=== PATIENT | female | born 1940 | race Caucasian/White ===

== ENCOUNTER 2017-08-10 08:17 | Day surgery (SDC) | payer MEDICARE, OTHER ==
[~2017-08-10] VITALS: Ht 152.4 cm; Wt 76.4 kg
[~2017-08-10 08:17] MED LIST: ATOR20TA86 PO; GABA-529 PO; HYDR25TA PO; INSU100V12 SQ; LEVO75 PO; LISI-660 PO; METF500T4 PO; METO25XL PO; [UNRECOGNIZED DRUG - OTHER] PO
[2017-08-10 09:17] LABS: BASOPHILS % (AUTO) 0.8 % (0.0-2.0); EOSINOPHILS % (AUTO) 1.3 % (1.0-6.0); HEMATOCRIT 36.6 % (36-46); LYMPHOCYTES # (AUTO) 2.4 K/uL (1.0-4.8); LYMPHOCYTES % (AUTO) 29.5 % (22.0-44.0); MEAN CORPUSCULAR HEMOGLOBIN 27.3 pg (26.0-34.0); MEAN CORPUSCULAR HGB CONC 32.9 G/dL (31.0-37.0); MEAN CORPUSCULAR VOLUME 83 fL (80-100); MONOCYTES # (AUTO) 0.4 K/uL (0.1-1.0); MONOCYTES % (AUTO) 5.2 % (2.0-9.0); NEUTROPHILS # (AUTO) 5.2 K/uL (1.8-7.7); NEUTROPHILS % (AUTO) 63.2 % (40.0-70.0); PLATELET COUNT (AUTO) 293 K/uL (150-450); RED BLOOD CELL COUNT(AUTO) 4.41 MIL/uL (4.00-5.20); RED CELL DISTRIBUTION WIDTH 19.1 % (11.5-14.5)
[2017-08-10 09:22] LABS: PROTHROMBIN TIME 10.5 SEC (9.4-11.6)
[2017-08-10] MEDS ORDERED: METOPROLOL TARTRATE 50 MG TABLET PO ONE (09:30)
[2017-08-10 09:38] LABS: CALCIUM, TOTAL 9.6 mg/dL (8.8-10.5); CREATININE 0.97 mg/dL (0.60-1.30); POTASSIUM 4.4 mmol/L (3.5-5.1)
[2017-08-10] MEDS ORDERED: SODIUM CHLORIDE 0.9% 100 ML ONE (09:57)
[2017-08-10] MEDS ORDERED: IOVERSOL 350 MG/ML 150 ML VIAL ONE (09:57)
[2017-08-10] MEDS ORDERED: METOPROLOL TARTRATE 5 MG/5 ML VIAL ONE (10:28)
[2017-08-10] MEDS ORDERED: NITROGLYCERIN 400 MCG/SUBLINGUAL SPRAY 4.9 GM BOTTLE SL ONE (10:29)
[2017-08-10] MEDS ORDERED: METOPROLOL TARTRATE 5 MG/5 ML VIAL IVP ONE (10:44)
== END 2017-08-10 11:40 | disposition home or self-care (01) ==
LOC: SURGERY 08:17 → EDSTATUS 11:00 → SURGERY 11:40
PROVIDERS: ATTEND Internal Medicine Cardiovascular Disease
DX: I25.10 Atherosclerotic heart disease of native coronary artery without angina pectoris (principal); E78.00 Pure hypercholesterolemia, unspecified; E11.9 Type 2 diabetes mellitus without complications; I10 Essential (primary) hypertension; M19.90 Unspecified osteoarthritis, unspecified site; I08.3 Combined rheumatic disorders of mitral, aortic and tricuspid valves; Z79.1 Long term (current) use of non-steroidal anti-inflammatories (NSAID); Z79.4 Long term (current) use of insulin; Z79.84 Long term (current) use of oral hypoglycemic drugs; Z88.6 Allergy status to analgesic agent; Z87.891 Personal history of nicotine dependence; Z98.890 Other specified postprocedural states; Z79.899 Other long term (current) drug therapy; Z88.5 Allergy status to narcotic agent
CPT/HCPCS: 36415; 75574; 80048; 85025; 85610; 85730; 93005; J3490; J7050; Q9967

== ENCOUNTER 2017-10-14 18:55 | Inpatient (IN) | payer MEDICARE, OTHER ==
[~2017-10-14] VITALS: Ht 152.4 cm; Wt 78.5 kg
[~2017-10-14 18:55] MED LIST changes: -METF500T4 PO; +METF500T6 PO
[2017-10-14 19:00] VITALS: BP 154/89
[2017-10-14 20:16] LABS: GLUCOMETER DEV NAME(LOC) 2WR 1B; GLUCOSE,POINT OF CARE 169 MG/DL (70-110)
[2017-10-14] MEDS ORDERED: DOCUSATE SODIUM 283 MG/5 ML MINI-ENEMA PR PRN (20:30)
[2017-10-14] MEDS ORDERED: SENNA 187 MG TABLET PO SCH (21:00)
[2017-10-14] MEDS ORDERED: DEXTROSE 50%-WATER 25 GM/50 ML SYRINGE IVP PRN (22:15)
[2017-10-14 22:18] VITALS: BP 132/66
[2017-10-14 22:51] LABS: GLUCOMETER DEV NAME(LOC) 2WR 1B; GLUCOSE,POINT OF CARE 236 MG/DL (70-110)
[2017-10-14] MEDS: DOCUSATE SODIUM 100 MG CAPSULE PO SCH (22:54)
[2017-10-14] MEDS: INSULIN LISPRO 100 UNITS/ML SQ PRN (22:56)
[2017-10-14] MEDS: INSULIN GLARGINE,HUM.REC.ANLOG 100 UNITS/ML SQ SCH (22:57)
[2017-10-14] MEDS ORDERED: HYDROCODONE/ACETAMINOPHEN 5-325 MG TABLET PO PRN (23:15)
[2017-10-14] MEDS ORDERED: DiphenhydrAMINE HCL 25 MG CAPSULE PO PRN (23:15)
[2017-10-14] MEDS ORDERED: HYDROCODONE/ACETAMINOPHEN 10-325 MG TABLET PO PRN (23:15)
[2017-10-15] VITALS (10 sets, daily range): BP systolic 85–153; BP diastolic 50–76
[2017-10-15 00:24] LABS: APPEARANCE,URINE CLEAR (CLEAR); BILIRUBIN,URINE NEGATIVE (NEGATIVE); GLUCOSE, URINE (UA) NEGATIVE (NEGATIVE); KETONES,URINE NEGATIVE (NEGATIVE); LEUKOCYTE ESTERASE ,URINE NEGATIVE (NEGATIVE); NITRATE,URINE NEGATIVE (NEGATIVE); OCCULT BLOOD,URINE NEGATIVE (NEGATIVE); PH,URINE 6.5 (5.0-8.0); PROTEIN,URINE NEGATIVE (NEGATIVE); UROBILINOGEN,URINE 0.2 mg/dL (<=1.0)
[2017-10-15] MEDS: LEVOTHYROXINE SODIUM 75 MCG TABLET PO SCH (05:37)
[2017-10-15 05:54] LABS: GLUCOMETER DEV NAME(LOC) 2WR 2E; GLUCOSE,POINT OF CARE 120 MG/DL (70-110)
[2017-10-15 06:30] LABS: BASOPHILS % (AUTO) 0.7 % (0.0-2.0); EOSINOPHILS % (AUTO) 2.8 % (1.0-6.0); HEMATOCRIT 36.3 % (36-46); HEMOGLOBIN 12.3 g/dL (12.0-16.0); LYMPHOCYTES # (AUTO) 1.9 K/uL (1.0-4.8); LYMPHOCYTES % (AUTO) 22.9 % (22.0-44.0); MEAN CORPUSCULAR HEMOGLOBIN 28.5 pg (26.0-34.0); MEAN CORPUSCULAR HGB CONC 33.9 G/dL (31.0-37.0); MEAN CORPUSCULAR VOLUME 84 fL (80-100); MONOCYTES # (AUTO) 0.6 K/uL (0.1-1.0); MONOCYTES % (AUTO) 6.8 % (2.0-9.0); NEUTROPHILS # (AUTO) 5.5 K/uL (1.8-7.7); NEUTROPHILS % (AUTO) 66.8 % (40.0-70.0); PLATELET COUNT (AUTO) 218 K/uL (150-450); RED BLOOD CELL COUNT(AUTO) 4.31 MIL/uL (4.00-5.20); RED CELL DISTRIBUTION WIDTH 15.2 % (11.5-14.5)
[2017-10-15 07:02] LABS: ALANINE AMINOTRANSFERASE 18 U/L (12-78); ALBUMIN 2.9 g/dL (3.4-5.0); ALKALINE PHOSPHATASE 71 U/L (46-116); ANION GAP 9 mmol/L (8-16); ASPARTATE AMINOTRANSFERASE 17 U/L (15-37); BILIRUBIN,TOTAL 0.3 mg/dL (0.1-1.0); CALCIUM, TOTAL 8.5 mg/dL (8.8-10.5); CARBON DIOXIDE 24 mmol/L (22-29); CHLORIDE 103 mmol/L (98-107); CREATININE 0.84 mg/dL (0.60-1.30); GLUCOSE,RANDOM 121 mg/dL (70-110); POTASSIUM 3.8 mmol/L (3.5-5.1); SODIUM SERUM 136 mmol/L (136-145); TOTAL PROTEIN, SERUM 6.9 g/dL (6.4-8.2); UREA NITROGEN, BLOOD 24 mg/dL (7-18)
[2017-10-15 07:03] LABS: GLOMERULAR FILTR. RATE CALC > 60 mL/min (>60)
[2017-10-15] MEDS: DOCUSATE SODIUM 100 MG CAPSULE PO SCH ×2 (07:58→21:32)
[2017-10-15] MEDS: MetFORMIN HCL 500 MG TABLET PO SCH (07:58)
[2017-10-15] MEDS: ENOXAPARIN SODIUM 40 MG/0.4 ML PF SYRINGE SQ SCH (07:58)
[2017-10-15 12:09] LABS: GLUCOMETER DEV NAME(LOC) 2WR 2E; GLUCOSE,POINT OF CARE 179 MG/DL (70-110)
[2017-10-15] MEDS: INSULIN LISPRO 100 UNITS/ML SQ PRN ×3 (12:38→21:31)
[2017-10-15 17:53] LABS: GLUCOMETER DEV NAME(LOC) 2WR 1B; GLUCOSE,POINT OF CARE 160 MG/DL (70-110)
[2017-10-15] MEDS: INSULIN GLARGINE,HUM.REC.ANLOG 100 UNITS/ML SQ SCH (21:31)
[2017-10-15] MEDS: SENNA 187 MG TABLET PO SCH (21:32)
[2017-10-15 21:33] LABS: GLUCOMETER DEV NAME(LOC) 2WR 1B; GLUCOSE,POINT OF CARE 226 MG/DL (70-110)
[2017-10-16 00:18] VITALS: BP 153/68
[2017-10-16] MEDS: LEVOTHYROXINE SODIUM 75 MCG TABLET PO SCH (05:54)
[2017-10-16 06:23] LABS: GLUCOMETER DEV NAME(LOC) 2WR 2E; GLUCOSE,POINT OF CARE 106 MG/DL (70-110)
[2017-10-16 08:22] VITALS: BP 122/75
[2017-10-16] MEDS: MULTIVITAMINS WITH MINERALS, THERAPEUTIC TABLET PO SCH (08:22)
[2017-10-16] MEDS: DOCUSATE SODIUM 100 MG CAPSULE PO SCH ×2 (08:22→20:14)
[2017-10-16] MEDS: ACETAMINOPHEN 325 MG TABLET PO PRN (08:22)
[2017-10-16] MEDS: MetFORMIN HCL 500 MG TABLET PO SCH (08:22)
[2017-10-16] MEDS: ENOXAPARIN SODIUM 40 MG/0.4 ML PF SYRINGE SQ SCH (08:23)
[2017-10-16] MEDS: FAMOTIDINE 20 MG TABLET PO SCH (09:33)
[2017-10-16 11:53] LABS: GLUCOMETER DEV NAME(LOC) 2WR 2E; GLUCOSE,POINT OF CARE 148 MG/DL (70-110)
[2017-10-16 12:00] VITALS: BP 128/71
[2017-10-16 12:03] VITALS: BP 92/57
[2017-10-16 12:06] VITALS: BP 142/71
[2017-10-16] MEDS: INSULIN LISPRO 100 UNITS/ML SQ PRN ×2 (12:25→18:20)
[2017-10-16 15:40] VITALS: BP 139/58
[2017-10-16] MEDS: SENNA 187 MG TABLET PO SCH (20:14)
[2017-10-16 21:13] LABS: GLUCOMETER DEV NAME(LOC) 2WR 2E; GLUCOSE,POINT OF CARE 143 MG/DL (70-110)
[2017-10-16] MEDS: INSULIN GLARGINE,HUM.REC.ANLOG 100 UNITS/ML SQ SCH (21:17)
[2017-10-16 21:27] LABS: GLUCOMETER DEV NAME(LOC) 2WR 1B; GLUCOSE,POINT OF CARE 135 MG/DL (70-110)
[2017-10-17 00:50] VITALS: BP 135/71
[2017-10-17] MEDS: LEVOTHYROXINE SODIUM 75 MCG TABLET PO SCH (05:55)
[2017-10-17] MEDS: FAMOTIDINE 20 MG TABLET PO SCH (05:56)
[2017-10-17 06:39] LABS: GLUCOMETER DEV NAME(LOC) 2WR 2E; GLUCOSE,POINT OF CARE 98 MG/DL (70-110)
[2017-10-17] MEDS: ENOXAPARIN SODIUM 40 MG/0.4 ML PF SYRINGE SQ SCH (09:09)
[2017-10-17] MEDS: MetFORMIN HCL 500 MG TABLET PO SCH (09:09)
[2017-10-17] MEDS: MULTIVITAMINS WITH MINERALS, THERAPEUTIC TABLET PO SCH (09:09)
[2017-10-17] MEDS: DOCUSATE SODIUM 100 MG CAPSULE PO SCH ×2 (09:09→21:03)
[2017-10-17 09:10] VITALS: BP 117/71
[2017-10-17] MEDS: ACETAMINOPHEN 325 MG TABLET PO PRN (09:11)
[2017-10-17 09:13] VITALS: BP 133/67
[2017-10-17 12:14] LABS: GLUCOMETER DEV NAME(LOC) 2WR 1B; GLUCOSE,POINT OF CARE 125 MG/DL (70-110)
[2017-10-17 14:02] VITALS: BP 127/72
[2017-10-17 15:15] VITALS: BP 138/67
[2017-10-17 18:10] LABS: GLUCOMETER DEV NAME(LOC) 2WR 2E; GLUCOSE,POINT OF CARE 130 MG/DL (70-110)
[2017-10-17] MEDS: SENNA 187 MG TABLET PO SCH (21:03)
[2017-10-17] MEDS: INSULIN GLARGINE,HUM.REC.ANLOG 100 UNITS/ML SQ SCH (21:05)
[2017-10-17] MEDS: INSULIN LISPRO 100 UNITS/ML SQ PRN (21:06)
[2017-10-17 21:55] LABS: GLUCOMETER DEV NAME(LOC) 2WR 2E; GLUCOSE,POINT OF CARE 154 MG/DL (70-110)
[2017-10-18 01:22] VITALS: BP 141/67
[2017-10-18] MEDS: FAMOTIDINE 20 MG TABLET PO SCH (05:43)
[2017-10-18] MEDS: LEVOTHYROXINE SODIUM 75 MCG TABLET PO SCH (05:44)
[2017-10-18 06:07] LABS: GLUCOMETER DEV NAME(LOC) 2WR 1B; GLUCOSE,POINT OF CARE 90 MG/DL (70-110)
[2017-10-18 07:40] VITALS: BP 144/76
[2017-10-18] MEDS: MULTIVITAMINS WITH MINERALS, THERAPEUTIC TABLET PO SCH (08:18)
[2017-10-18] MEDS: DOCUSATE SODIUM 100 MG CAPSULE PO SCH ×2 (08:18→20:14)
[2017-10-18] MEDS: ENOXAPARIN SODIUM 40 MG/0.4 ML PF SYRINGE SQ SCH (08:18)
[2017-10-18] MEDS: ACETAMINOPHEN 325 MG TABLET PO PRN (08:18)
[2017-10-18] MEDS: MetFORMIN HCL 500 MG TABLET PO SCH (08:19)
[2017-10-18 12:58] LABS: GLUCOMETER DEV NAME(LOC) 2WR 1B; GLUCOSE,POINT OF CARE 127 MG/DL (70-110)
[2017-10-18 15:24] VITALS: BP 145/55
[2017-10-18 15:31] VITALS: BP 138/62
[2017-10-18 15:36] VITALS: BP 118/68
[2017-10-18 17:23] LABS: GLUCOMETER DEV NAME(LOC) 2WR 1B; GLUCOSE,POINT OF CARE 153 MG/DL (70-110)
[2017-10-18] MEDS: INSULIN LISPRO 100 UNITS/ML SQ PRN (18:26)
[2017-10-18] MEDS: GABAPENTIN 100 MG CAPSULE PO SCH (20:13)
[2017-10-18] MEDS: SENNA 187 MG TABLET PO SCH (20:14)
[2017-10-18 21:38] LABS: GLUCOMETER DEV NAME(LOC) 2WR 2E; GLUCOSE,POINT OF CARE 116 MG/DL (70-110)
[2017-10-18] MEDS: INSULIN GLARGINE,HUM.REC.ANLOG 100 UNITS/ML SQ SCH (21:39)
[2017-10-19] VITALS: BP 135/73
[2017-10-19] MEDS: LEVOTHYROXINE SODIUM 75 MCG TABLET PO SCH (05:57)
[2017-10-19] MEDS: FAMOTIDINE 20 MG TABLET PO SCH (05:57)
[2017-10-19 06:08] LABS: GLUCOMETER DEV NAME(LOC) 2WR 1B; GLUCOSE,POINT OF CARE 102 MG/DL (70-110)
[2017-10-19 07:10] VITALS: BP 144/68
[2017-10-19] MEDS: MULTIVITAMINS WITH MINERALS, THERAPEUTIC TABLET PO SCH (09:50)
[2017-10-19] MEDS: ENOXAPARIN SODIUM 40 MG/0.4 ML PF SYRINGE SQ SCH (09:50)
[2017-10-19] MEDS: MetFORMIN HCL 500 MG TABLET PO SCH (09:50)
[2017-10-19] MEDS: DOCUSATE SODIUM 100 MG CAPSULE PO SCH ×2 (09:51→20:33)
[2017-10-19] MEDS: ACETAMINOPHEN 325 MG TABLET PO PRN (10:22)
[2017-10-19 12:13] LABS: GLUCOMETER DEV NAME(LOC) 2WR 2E; GLUCOSE,POINT OF CARE 149 MG/DL (70-110)
[2017-10-19] MEDS: INSULIN LISPRO 100 UNITS/ML SQ PRN ×2 (12:53→20:36)
[2017-10-19 15:10] VITALS: BP 121/55
[2017-10-19 17:38] LABS: GLUCOMETER DEV NAME(LOC) 2WR 2E; GLUCOSE,POINT OF CARE 70 MG/DL (70-110)
[2017-10-19] MEDS: SENNA 187 MG TABLET PO SCH (20:33)
[2017-10-19] MEDS: GABAPENTIN 100 MG CAPSULE PO SCH (20:33)
[2017-10-19] MEDS: INSULIN GLARGINE,HUM.REC.ANLOG 100 UNITS/ML SQ SCH (20:35)
[2017-10-19 20:43] LABS: GLUCOMETER DEV NAME(LOC) 2WR 1B; GLUCOSE,POINT OF CARE 210 MG/DL (70-110)
[2017-10-19 23:30] VITALS: BP 137/68
[2017-10-20] MEDS: FAMOTIDINE 20 MG TABLET PO SCH (05:39)
[2017-10-20] MEDS: LEVOTHYROXINE SODIUM 75 MCG TABLET PO SCH (05:39)
[2017-10-20 06:18] LABS: GLUCOMETER DEV NAME(LOC) 2WR 2E; GLUCOSE,POINT OF CARE 78 MG/DL (70-110)
[2017-10-20 07:30] VITALS: BP 142/62
[2017-10-20] MEDS: ENOXAPARIN SODIUM 40 MG/0.4 ML PF SYRINGE SQ SCH (08:26)
[2017-10-20] MEDS: MetFORMIN HCL 500 MG TABLET PO SCH (08:26)
[2017-10-20] MEDS: DOCUSATE SODIUM 100 MG CAPSULE PO SCH ×2 (08:26→20:14)
[2017-10-20] MEDS: MULTIVITAMINS WITH MINERALS, THERAPEUTIC TABLET PO SCH (08:26)
[2017-10-20] MEDS: ACETAMINOPHEN 325 MG TABLET PO PRN (09:53)
[2017-10-20 12:33] LABS: GLUCOMETER DEV NAME(LOC) 2WR 2E; GLUCOSE,POINT OF CARE 97 MG/DL (70-110)
[2017-10-20 15:20] VITALS: BP 119/55
[2017-10-20 17:18] LABS: GLUCOMETER DEV NAME(LOC) 2WR 1B; GLUCOSE,POINT OF CARE 193 MG/DL (70-110)
[2017-10-20] MEDS: INSULIN LISPRO 100 UNITS/ML SQ PRN ×2 (18:08→21:33)
[2017-10-20] MEDS: GABAPENTIN 100 MG CAPSULE PO SCH (20:14)
[2017-10-20] MEDS: SENNA 187 MG TABLET PO SCH (20:14)
[2017-10-20 21:24] LABS: GLUCOMETER DEV NAME(LOC) 2WR 1B; GLUCOSE,POINT OF CARE 161 MG/DL (70-110)
[2017-10-20] MEDS: INSULIN GLARGINE,HUM.REC.ANLOG 100 UNITS/ML SQ SCH (21:32)
[2017-10-21 00:40] VITALS: BP 135/66
[2017-10-21] MEDS: FAMOTIDINE 20 MG TABLET PO SCH (05:41)
[2017-10-21] MEDS: LEVOTHYROXINE SODIUM 75 MCG TABLET PO SCH (05:41)
[2017-10-21 06:04] LABS: GLUCOMETER DEV NAME(LOC) 2WR 2E; GLUCOSE,POINT OF CARE 88 MG/DL (70-110)
[2017-10-21 07:45] VITALS: BP 154/69
[2017-10-21] MEDS: DOCUSATE SODIUM 100 MG CAPSULE PO SCH ×2 (08:21→20:02)
[2017-10-21] MEDS: MULTIVITAMINS WITH MINERALS, THERAPEUTIC TABLET PO SCH (08:21)
[2017-10-21] MEDS: ENOXAPARIN SODIUM 40 MG/0.4 ML PF SYRINGE SQ SCH (08:21)
[2017-10-21] MEDS: MetFORMIN HCL 500 MG TABLET PO SCH (08:21)
[2017-10-21] MEDS: ACETAMINOPHEN 325 MG TABLET PO PRN ×2 (08:27→20:06)
[2017-10-21 12:08] LABS: GLUCOMETER DEV NAME(LOC) 2WR 2E; GLUCOSE,POINT OF CARE 96 MG/DL (70-110)
[2017-10-21 16:20] VITALS: BP 152/69
[2017-10-21 16:25] VITALS: BP 143/75
[2017-10-21 16:30] VITALS: BP 129/69
[2017-10-21 17:14] LABS: GLUCOMETER DEV NAME(LOC) 2WR 2E; GLUCOSE,POINT OF CARE 128 MG/DL (70-110)
[2017-10-21] MEDS: OXYGEN THERAPY IH SCH (20:00)
[2017-10-21] MEDS: GABAPENTIN 100 MG CAPSULE PO SCH (20:02)
[2017-10-21] MEDS: SENNA 187 MG TABLET PO SCH (20:03)
[2017-10-21] MEDS: INSULIN LISPRO 100 UNITS/ML SQ PRN (20:13)
[2017-10-21] MEDS: INSULIN GLARGINE,HUM.REC.ANLOG 100 UNITS/ML SQ SCH (20:13)
[2017-10-21 20:38] LABS: GLUCOMETER DEV NAME(LOC) 2WR 2E; GLUCOSE,POINT OF CARE 199 MG/DL (70-110)
[2017-10-21] MEDS ORDERED: ISOSORBIDE MONONITRATE 60 MG ER TABLET PO SCH (21:00)
[2017-10-21] MEDS ORDERED: NIFEdipine 60 MG ER TABLET PO SCH (21:00)
[2017-10-21] MEDS ORDERED: ATORVASTATIN CALCIUM 40 MG TABLET PO SCH (21:00)
[2017-10-21] MEDS ORDERED: MONTELUKAST SODIUM 10 MG TABLET PO SCH (21:00)
[2017-10-21] MEDS ORDERED: DOXYCYCLINE HYCLATE 100 MG CAPSULE PO SCH (21:00)
[2017-10-21] MEDS ORDERED: HydrALAZINE HCL 25 MG TABLET PO SCH (21:00)
[2017-10-21] MEDS ORDERED: IPRATROPIUM BROMIDE 0.5 MG/2.5 ML NEB SOLUTION NEB SCH (23:00)
[2017-10-21 23:54] VITALS: BP 140/63
[2017-10-22] MEDS ORDERED: MethylPREDNISolone SOD SUCC 125 MG/2 ML VIAL IVP SCH
[2017-10-22] MEDS: LEVOTHYROXINE SODIUM 75 MCG TABLET PO SCH (06:01)
[2017-10-22] MEDS: FAMOTIDINE 20 MG TABLET PO SCH (06:01)
[2017-10-22 06:24] LABS: GLUCOMETER DEV NAME(LOC) 2WR 2E; GLUCOSE,POINT OF CARE 73 MG/DL (70-110)
[2017-10-22 07:30] VITALS: BP 117/62
[2017-10-22] MEDS ORDERED: MetFORMIN HCL 500 MG TABLET PO SCH (07:30)
[2017-10-22 07:35] VITALS: BP 142/61
[2017-10-22] MEDS: ENOXAPARIN SODIUM 40 MG/0.4 ML PF SYRINGE SQ SCH (07:46)
[2017-10-22] MEDS: MetFORMIN HCL 500 MG TABLET PO SCH (07:46)
[2017-10-22] MEDS: MULTIVITAMINS WITH MINERALS, THERAPEUTIC TABLET PO SCH (07:46)
[2017-10-22] MEDS: OXYGEN THERAPY IH SCH ×2 (07:46→20:00)
[2017-10-22] MEDS: DOCUSATE SODIUM 100 MG CAPSULE PO SCH ×2 (07:46→21:10)
[2017-10-22] MEDS: ACETAMINOPHEN 325 MG TABLET PO PRN (10:34)
[2017-10-22 12:34] LABS: GLUCOMETER DEV NAME(LOC) 2WR 1B; GLUCOSE,POINT OF CARE 96 MG/DL (70-110)
[2017-10-22 15:10] VITALS: BP 146/72
[2017-10-22] MEDS ORDERED: INSU100V SQ (16:13)
[2017-10-22] MEDS ORDERED: DSS100 PO (16:13)
[2017-10-22] MEDS ORDERED: MULT-1239 PO (16:13)
[2017-10-22] MEDS ORDERED: INSLAN SQ (16:13)
[2017-10-22] MEDS ORDERED: FAMO20 PO (16:13)
[2017-10-22 20:49] LABS: GLUCOMETER DEV NAME(LOC) 2WR 1B; GLUCOSE,POINT OF CARE 128 MG/DL (70-110)
[2017-10-22] MEDS: GABAPENTIN 100 MG CAPSULE PO SCH (21:10)
[2017-10-22] MEDS: SENNA 187 MG TABLET PO SCH (21:10)
[2017-10-22] MEDS: INSULIN GLARGINE,HUM.REC.ANLOG 100 UNITS/ML SQ SCH (21:12)
[2017-10-22] MEDS: INSULIN LISPRO 100 UNITS/ML SQ PRN (21:13)
[2017-10-22 21:49] LABS: GLUCOMETER DEV NAME(LOC) 2WR 2E; GLUCOSE,POINT OF CARE 182 MG/DL (70-110)
[2017-10-23 02:21] VITALS: BP 126/65
[2017-10-23] MEDS: FAMOTIDINE 20 MG TABLET PO SCH (06:06)
[2017-10-23] MEDS: LEVOTHYROXINE SODIUM 75 MCG TABLET PO SCH (06:06)
[2017-10-23 06:23] LABS: GLUCOMETER DEV NAME(LOC) 2WR 1B; GLUCOSE,POINT OF CARE 71 MG/DL (70-110)
[2017-10-23 07:13] VITALS: BP 146/72
[2017-10-23] MEDS: OXYGEN THERAPY IH SCH (08:00)
[2017-10-23] MEDS: MetFORMIN HCL 500 MG TABLET PO SCH (09:29)
[2017-10-23] MEDS: DOCUSATE SODIUM 100 MG CAPSULE PO SCH ×2 (09:29→21:34)
[2017-10-23] MEDS: ENOXAPARIN SODIUM 40 MG/0.4 ML PF SYRINGE SQ SCH (09:30)
[2017-10-23] MEDS: MULTIVITAMINS WITH MINERALS, THERAPEUTIC TABLET PO SCH (09:30)
[2017-10-23] MEDS: ACETAMINOPHEN 325 MG TABLET PO PRN (10:07)
[2017-10-23 12:23] LABS: GLUCOMETER DEV NAME(LOC) 2WR 1B; GLUCOSE,POINT OF CARE 135 MG/DL (70-110)
[2017-10-23 15:26] VITALS: BP 123/57
[2017-10-23 15:32] VITALS: BP 119/59
[2017-10-23 17:39] LABS: GLUCOMETER DEV NAME(LOC) 2WR 1B; GLUCOSE,POINT OF CARE 111 MG/DL (70-110)
[2017-10-23] MEDS: SENNA 187 MG TABLET PO SCH (21:34)
[2017-10-23] MEDS: GABAPENTIN 100 MG CAPSULE PO SCH (21:34)
[2017-10-23] MEDS: INSULIN GLARGINE,HUM.REC.ANLOG 100 UNITS/ML SQ SCH (21:45)
[2017-10-23] MEDS: INSULIN LISPRO 100 UNITS/ML SQ PRN (21:46)
[2017-10-23 22:08] LABS: GLUCOMETER DEV NAME(LOC) 2WR 2E; GLUCOSE,POINT OF CARE 163 MG/DL (70-110)
[2017-10-23 23:52] VITALS: BP 109/58
[2017-10-24] MEDS: FAMOTIDINE 20 MG TABLET PO SCH (05:48)
[2017-10-24] MEDS: LEVOTHYROXINE SODIUM 75 MCG TABLET PO SCH (05:48)
[2017-10-24 06:23] LABS: GLUCOMETER DEV NAME(LOC) 2WR 1B; GLUCOSE,POINT OF CARE 90 MG/DL (70-110)
[2017-10-24 07:18] VITALS: BP 137/59
[2017-10-24] MEDS: DOCUSATE SODIUM 100 MG CAPSULE PO SCH ×2 (08:46→21:10)
[2017-10-24] MEDS: MULTIVITAMINS WITH MINERALS, THERAPEUTIC TABLET PO SCH (08:46)
[2017-10-24] MEDS: ENOXAPARIN SODIUM 40 MG/0.4 ML PF SYRINGE SQ SCH (08:46)
[2017-10-24] MEDS: ACETAMINOPHEN 325 MG TABLET PO PRN (08:46)
[2017-10-24] MEDS: MetFORMIN HCL 500 MG TABLET PO SCH (08:46)
[2017-10-24 15:30] VITALS: BP 128/79
[2017-10-24 18:13] LABS: GLUCOMETER DEV NAME(LOC) 2WR 1B; GLUCOSE,POINT OF CARE 215 MG/DL (70-110)
[2017-10-24] MEDS: INSULIN LISPRO 100 UNITS/ML SQ PRN (18:23)
[2017-10-24] MEDS: SENNA 187 MG TABLET PO SCH (21:10)
[2017-10-24] MEDS: GABAPENTIN 100 MG CAPSULE PO SCH (21:10)
[2017-10-24] MEDS: INSULIN GLARGINE,HUM.REC.ANLOG 100 UNITS/ML SQ SCH (21:19)
[2017-10-24 21:43] LABS: GLUCOMETER DEV NAME(LOC) 2WR 1B; GLUCOSE,POINT OF CARE 101 MG/DL (70-110)
[2017-10-25 00:40] VITALS: BP 129/52
[2017-10-25 05:49] LABS: GLUCOMETER DEV NAME(LOC) 2WR 1B; GLUCOSE,POINT OF CARE 113 MG/DL (70-110)
[2017-10-25] MEDS: LEVOTHYROXINE SODIUM 75 MCG TABLET PO SCH (06:13)
[2017-10-25] MEDS: FAMOTIDINE 20 MG TABLET PO SCH (06:13)
[2017-10-25 07:42] VITALS: BP 156/80
[2017-10-25] MEDS: DOCUSATE SODIUM 100 MG CAPSULE PO SCH ×2 (08:04→21:22)
[2017-10-25] MEDS: ENOXAPARIN SODIUM 40 MG/0.4 ML PF SYRINGE SQ SCH (08:04)
[2017-10-25] MEDS: MetFORMIN HCL 500 MG TABLET PO SCH (08:04)
[2017-10-25] MEDS: MULTIVITAMINS WITH MINERALS, THERAPEUTIC TABLET PO SCH (08:04)
[2017-10-25] MEDS: ACETAMINOPHEN 325 MG TABLET PO PRN (08:12)
[2017-10-25 12:54] LABS: GLUCOMETER DEV NAME(LOC) 2WR 2E; GLUCOSE,POINT OF CARE 101 MG/DL (70-110)
[2017-10-25 15:20] VITALS: BP 126/63
[2017-10-25 17:27] LABS: GLUCOMETER DEV NAME(LOC) 2WR 1B; GLUCOSE,POINT OF CARE 220 MG/DL (70-110)
[2017-10-25] MEDS: GABAPENTIN 100 MG CAPSULE PO SCH (21:22)
[2017-10-25] MEDS: INSULIN GLARGINE,HUM.REC.ANLOG 100 UNITS/ML SQ SCH (21:22)
[2017-10-25] MEDS: SENNA 187 MG TABLET PO SCH (21:22)
[2017-10-25 21:54] LABS: GLUCOMETER DEV NAME(LOC) 2WR 2E; GLUCOSE,POINT OF CARE 81 MG/DL (70-110)
[2017-10-26 01:35] VITALS: BP 152/73
[2017-10-26 02:30] VITALS: BP 142/68
[2017-10-26] MEDS: LEVOTHYROXINE SODIUM 75 MCG TABLET PO SCH (06:08)
[2017-10-26] MEDS: FAMOTIDINE 20 MG TABLET PO SCH (06:08)
[2017-10-26 06:23] LABS: GLUCOMETER DEV NAME(LOC) 2WR 1B; GLUCOSE,POINT OF CARE 84 MG/DL (70-110)
[2017-10-26 07:55] VITALS: BP 128/67
[2017-10-26] MEDS: MetFORMIN HCL 500 MG TABLET PO SCH (08:17)
[2017-10-26] MEDS: DOCUSATE SODIUM 100 MG CAPSULE PO SCH ×2 (08:17→20:13)
[2017-10-26] MEDS: ENOXAPARIN SODIUM 40 MG/0.4 ML PF SYRINGE SQ SCH (08:17)
[2017-10-26] MEDS: MULTIVITAMINS WITH MINERALS, THERAPEUTIC TABLET PO SCH (08:17)
[2017-10-26] MEDS: ACETAMINOPHEN 325 MG TABLET PO PRN (11:13)
[2017-10-26] MEDS ORDERED: ACET-784 PO (12:36)
[2017-10-26 12:42] LABS: GLUCOMETER DEV NAME(LOC) 2WR 1B; GLUCOSE,POINT OF CARE 105 MG/DL (70-110)
[2017-10-26 15:26] VITALS: BP 138/69
[2017-10-26 17:35] LABS: GLUCOMETER DEV NAME(LOC) 2WR 1B; GLUCOSE,POINT OF CARE 105 MG/DL (70-110)
[2017-10-26] MEDS: SENNA 187 MG TABLET PO SCH (20:13)
[2017-10-26] MEDS: GABAPENTIN 100 MG CAPSULE PO SCH (20:13)
[2017-10-26] MEDS: INSULIN GLARGINE,HUM.REC.ANLOG 100 UNITS/ML SQ SCH (21:42)
[2017-10-26 21:53] LABS: GLUCOMETER DEV NAME(LOC) 2WR 1B; GLUCOSE,POINT OF CARE 128 MG/DL (70-110)
[2017-10-26 23:39] VITALS: BP 143/65
[2017-10-27] MEDS: FAMOTIDINE 20 MG TABLET PO SCH (05:57)
[2017-10-27] MEDS: LEVOTHYROXINE SODIUM 75 MCG TABLET PO SCH (05:57)
[2017-10-27 06:41] LABS: GLUCOMETER DEV NAME(LOC) 2WR 1B; GLUCOSE,POINT OF CARE 77 MG/DL (70-110)
[2017-10-27 07:25] VITALS: BP 149/62
[2017-10-27] MEDS: ENOXAPARIN SODIUM 40 MG/0.4 ML PF SYRINGE SQ SCH (08:45)
[2017-10-27] MEDS: MetFORMIN HCL 500 MG TABLET PO SCH (08:45)
[2017-10-27] MEDS: DOCUSATE SODIUM 100 MG CAPSULE PO SCH (08:45)
[2017-10-27] MEDS: MULTIVITAMINS WITH MINERALS, THERAPEUTIC TABLET PO SCH (08:45)
[2017-10-27] MEDS: ACETAMINOPHEN 325 MG TABLET PO PRN (08:53)
[2017-10-27 12:09] LABS: GLUCOMETER DEV NAME(LOC) 2WR 2E; GLUCOSE,POINT OF CARE 113 MG/DL (70-110)
[2017-10-27] MEDS ORDERED: INSULIN GLARGINE,HUM.REC.ANLOG 100 UNITS/ML SQ SCH (21:00)
== END 2017-10-27 14:00 | disposition home or self-care (01) | DRG 74 ==
LOC: 2WR 18:55
PROVIDERS: ADMIT Physical Medicine & Rehabilitation; ATTEND Physical Medicine & Rehabilitation
DX: M54.12 Radiculopathy, cervical region (principal); E44.0 Moderate protein-calorie malnutrition; E03.9 Hypothyroidism, unspecified; E11.9 Type 2 diabetes mellitus without complications; M19.90 Unspecified osteoarthritis, unspecified site; E78.5 Hyperlipidemia, unspecified; I10 Essential (primary) hypertension; Z96.651 Presence of right artificial knee joint; Z98.1 Arthrodesis status; Z88.6 Allergy status to analgesic agent; Z68.33 Body mass index [BMI] 33.0-33.9, adult
CPT/HCPCS: 84443; 87081; 97110; 97116; 97162; 97166; 97530; 97535; 97537; 99366; J1650; J1815